=== PATIENT | female | born 2000 | race African-American/Black ===

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

== ENCOUNTER 2021-01-05 19:28 | Outpatient (CLI) | payer MEDICAID ==
[~2021-01-05] VITALS: Ht 177.8 cm; Wt 72.8 kg
[2021-01-05 19:45] VITALS: BP 118/90
[2021-01-05 20:01] LABS: BILIRUBIN,URINE NEGATIVE (NEGATIVE); CLARITY,URINE CLEAR; COLOR,URINE YELLOW; GLUCOSE, URINE (UA) NEGATIVE (NEGATIVE); KETONES,URINE NEGATIVE (NEGATIVE); LEUKOCYTE ESTERASE ,URINE 2+ (NEGATIVE); NITRITE,URINE NEGATIVE (NEGATIVE); PROTEIN,URINE NEGATIVE (NEGATIVE)
[2021-01-05 20:09] LABS: BACTERIA,URINE TRACE /HPF
[2021-01-05] MEDS ORDERED: PREN-142 PO (20:27)
[2021-01-05] MEDS ORDERED: FERR-84 PO (20:27)
[2021-01-05] MEDS ORDERED: CEPHALEXIN 250 MG (KEFLEX) CAP PO ONE (20:30)
[2021-01-05] MEDS ORDERED: CEPH500T PO (20:31)
--- NOTE | 2021-01-06 08:02 | Physician Query-Final Dx ---
Clinic Account Progress/Dx Physician Query: Please give diagnosis Please include # weeks gestation Date of Service Jan 05, 2021 at 19:28 MIRIAM THOMAS Jan 06, 2021 08:02
== END 2021-01-05 20:48 | disposition home or self-care (01) ==
LOC: WSo 19:28 → LDRP 19:28 → WSo 20:48
PROVIDERS: ATTEND Obstetrics & Gynecology
DX: O26.893 Other specified pregnancy related conditions, third trimester (principal); R25.2 Cramp and spasm; Z3A.37 37 weeks gestation of pregnancy
CPT/HCPCS: 81000; 87088

== ENCOUNTER 2021-01-09 22:43 | Inpatient (IN) | payer MEDICAID ==
[~2021-01-09] VITALS: Ht 170.2 cm; Wt 79.5 kg
[~2021-01-09 22:43] MED LIST changes: +CEPH500T PO; +FERR-84 PO; +PREN-142 PO
[2021-01-09 22:56] VITALS: BP 121/73
[2021-01-09 23:11] VITALS: BP 121/73
[2021-01-09] MEDS ORDERED: D5 LR IV SOLUTION 1,000 ML IV ONE (23:53)
[2021-01-10] VITALS (26 sets, daily range): BP systolic 112–144; BP diastolic 57–91
[2021-01-10] MEDS ORDERED: D5 LR IV SOLUTION 1,000 ML IV SCH
[2021-01-10] MEDS ORDERED: MINERAL OIL CONCENTRATE 99.9% 15 ML UDC TOP PRN
[2021-01-10 00:28] LABS: BASOPHILS % (AUTO) 0 % (0-10); EOSINOPHILS # (AUTO) 0.1 10^3/uL (0.0-0.3); EOSINOPHILS % (AUTO) 1 % (0-10); HEMATOCRIT 36 % (35-52); HEMOGLOBIN 12.1 g/dL (11.5-16.0); LYMPHOCYTES # (AUTO) 2.9 10^3/uL (1.0-4.0); LYMPHOCYTES % (AUTO) 25 % (12-44); MEAN CORPUSCULAR HEMOGLOBIN 31 pg (25-34); MEAN CORPUSCULAR HGB CONC 34 g/dL (32-36); MEAN CORPUSCULAR VOLUME 93 fL (80-99); MONOCYTES # (AUTO) 0.6 10^3/uL (0.0-1.0); MONOCYTES % (AUTO) 6 % (0-12); NEUTROPHILS % (AUTO) 68 % (42-75); PLATELET COUNT 214 10^3/uL (130-400); WHITE BLOOD COUNT 11.7 10^3/uL (4.3-11.0)
[2021-01-10] MEDS ORDERED: fentaNYL 2 mcg/ml BUPIVA 0.125 0 ML ONE (02:45)
[2021-01-10] MEDS ORDERED: fentaNYL INJ 100 MCG/2 ML AMP ONE (03:15)
--- NOTE | 2021-01-10 03:28 | History & Physical-OB ---
OB - Chief Complaint & HPI Date/Time Date of Admission: Date of Admission: Jan 09, 2021 at 23:30 Date seen by a Provider: Jan 10, 2021 Time Seen by a Provider: 03:25 Chief Complaint/History OB-Reason for Admission/Chief: Onset of Labor (Presented with complaint of contractions. ) Hx : 1 Hx Para: 0 Expected Date of Delivery: Dec 29, 2021 Gestational Age in Weeks: 37 Gestational Age in Days: 3 Admission Nurse Assessment Rev: Yes History of Labs O+/- GBS- Rub I Other unable to locate labs from [facility] except Rubella Will draw HbSag and VDRL Allergies and Home Medications Allergies Coded Allergies: latex (Verified Allergy, Unknown, 05/03/20) Patient Home Medication List Home Medication List Reviewed: Yes Cephalexin (Cephalexin) 500 Mg Tablet, 500 MG PO BID Prescribed by: CESAR CORONADO on 01/05/212030 Ferrous Sulfate (Iron) 325 Mg Tablet, 325 MG PO DAILY, (Reported) Entered as Reported by: CESAR CORONADO on 01/05/212026 Vit No.124/Iron/FA ( Vitamin Tablet) 1 Each Tablet, 1 EACH PO DAILY, (Reported) Entered as Reported by: CESAR CORONADO on 01/05/212026 Discontinued Medications Albuterol (Proair Hfa) 8.5 Gm Hfa.aer.ad, 2 PUFF IH PRN, (Reported) Discontinued Reason: No Longer Taking Entered as Reported by: FAUSTINO BURR on 01/29/13 1026 Azithromycin (Azithromycin) 250 Mg Tablet, 250 MG PO UD Discontinued Reason: No Longer Taking Prescribed by: GLORY YO on 05/13/20 1016 Fluticasone Propionate (Flonase Nasal [place]) 16 Gm Naspr, 16 GM NS BID, (Reported) Discontinued Reason: No Longer Taking Entered as Reported by: FAUSTINO BURR on 01/29/13 1026 Fluticasone/Salmeterol (Advair Hfa 115/21 Mcg Inhaler) 60 Puff/8 Gm Puff, 2 PUFF IH BID, (Reported) Discontinued Reason: No Longer Taking Entered as Reported by: FAUSTINO BURR on 01/29/13 1026 Montelukast Sodium (Singulair) 5 Mg Tab.chew, 5 MG PO DAILY, (Reported) Discontinued Reason: No Longer Taking Entered as Reported by: FAUSTINO BURR on 01/29/13 1026 Prednisone (Prednisone) 20 Mg Tab, 30 MG PO BID Discontinued Reason: No Longer Taking Prescribed by: TAMARA DELACRUZ on 06/12/162128 [Antibiotic] , (Reported) Discontinued Reason: No Longer Taking Entered as Reported by: FAUSTINO BURR on 01/29/13 1026 [Steroid] , (Reported) Discontinued Reason: No Longer Taking Entered as Reported by: FAUSTINO BURR on 01/29/13 1026 OB - History Hx of Present Care: Yes Ultrasounds: Normal mid trimester US Obstetrical Complications: None Medical Complications: None Information Induced Hypertension: No Maternal Gestational Diabetes: No Hemorrhage: No Obstetrical History Hx : 1 Hx Para: 0 Patient Past Medical History NC Social History/Family History Alcohol Use: Denies Use Recreational Drug Use: No 2nd Hand Smoke Exposure: Yes Immunizations Tetanus Booster (TDap): Less than 5yrs (12/04/2020) Rubella: immune RPR/VDRL: Unknown GBS Status: Negative HBsAG: Unknown OB - Admission Exam Physical Exam Vitals: Vital Signs 01/10/21 01/10/21 00:00 01:00 Temp 36.4 Pulse 71 Resp 18 B/P (MAP) 138/81 (100) Pulse Ox 98 O2 Delivery Room Air HEENT: NCAT Heart: Rhythm Normal Lungs: Clear Abdomen: Gravid Extremities: Edema Cervical Dilatation: 4cm Effacement: 75% Station: -2 Membranes: Intact Heart Rate: 140's Accelerations: Accelerations Present Decelerations: No Decelerations Short Term Variability: Present Nursing Home Variability: Average (6-25) Contractions on Admission: 6-10 Minutes Apart Labs Laboratory Tests Test 01/10/21 00:14 Range/Units White Blood Count 11.7 H 4.3-11.0 10^3/uL Red Blood Count 3.88 3.80-5.11 10^6/uL Hemoglobin 12.1 11.5-16.0 g/dL Hematocrit 36 35-52 % Mean Corpuscular Volume 93 80-99 fL Mean Corpuscular Hemoglobin 31 25-34 pg Mean Corpuscular Hemoglobin Concent 34 32-36 g/dL Red Cell Distribution Width 11.9 10.0-14.5 % Platelet Count 214 130-400 10^3/uL Mean Platelet Volume 10.0 9.0-12.2 fL Immature Granulocyte % (Auto) 1 % Neutrophils (%) (Auto) 68 42-75 % Lymphocytes (%) (Auto) 25 12-44 % Monocytes (%) (Auto) 6 0-12 % Eosinophils (%) (Auto) 1 0-10 % Basophils (%) (Auto) 0 0-10 % Neutrophils # (Auto) 8.0 H 1.8-7.8 10^3/uL Lymphocytes # (Auto) 2.9 1.0-4.0 10^3/uL Monocytes # (Auto) 0.6 0.0-1.0 10^3/uL Eosinophils # (Auto) 0.1 0.0-0.3 10^3/uL Basophils # (Auto) 0.0 0.0-0.1 10^3/uL Immature Granulocyte # (Auto) 0.1 0.0-0.1 10^3/uL OB - Assessment/Plan/Diagnosis Assessment Assessment: active labor Admission Dx Labor Admission Status: Inpatient Order (span 2 midnights) Reason for Inpatient Admission: Labor Plan Plan: Expectant Management DEANNE CHAMORRO DO Jan 10, 2021 03:28
[2021-01-10] MEDS ORDERED: OXYTOCIN PRE-MIX DRIP 500 ML IV ONE ×2 (03:37→04:45)
[2021-01-10] MEDS ORDERED: ONDANSETRON 4 MG/2 ML (SDV) Z0FRAN IV PRN (03:45)
[2021-01-10] MEDS ORDERED: diphenhydrAMINE 50 MG/ML INJ (BENADRYL) IV PRN (03:45)
[2021-01-10] MEDS ORDERED: NALOXONE 0.4 MG/ML 1 ML (NARCAN) VIAL IV PRN ×3 (03:45→04:45)
[2021-01-10] MEDS ORDERED: METOCLOPRAMIDE INJ 10 MG/2 ML (REGLAN) IV PRN (03:45)
[2021-01-10] MEDS: OXYTOCIN PRE-MIX DRIP 500 ML IV SCH ×2 (04:11→04:45)
--- NOTE | 2021-01-10 04:20 | OB Labor & Delivery Record ---
Vag Delivery Note Vag Delivery Note Date of Delivery: 01/10/21 Preoperative Diagnosis: Negrito Calvo is a 20 /Para 1 / 0, Gestational Age 37 2/7 week gestation labor Postoperative Diagnosis: Same; placental abruption Surgeon: DEANNE CHAMORRO Anesthesia: labor spinal Delivery Type: spontaneous vaginal Findings: [] Viable female infant, apgars & weight pending Lacerations: none Intact placenta with 3 vessel cord. No nuchal cord, body cord or shoulder dystocia Cytotec 800 mcg placed for hemorrhage prophylaxis Estimated Blood Loss: 750 ml Complications: None Condition: Stable Description of Procedure: The patient is a 21 year old female who presented in active labor. Att approximatley 2330 she was itzel regularly and was 4 cm dilated. She was admitted and informed consent was obtained. Her labor course was remarkable for 5 cm dilation at 0315 and epidural was requested. At 0345 she was now 8-9 cm dilated and had SROM so labor spinal was done. She was 9+ (rim) after plac ement of the spinal. She then had spontaneous nausea and emesis and delivered the head with an episode of emesis. She progressed to complete dilatation and began to push. She was then set up for delivery. The infant's head was delivered atraumatically in the JOEL position with one push. The shoulders and remainder of the 's body were then delivered without difficulty. Upon delivery, the head was held below the level of the perineum and the mouth and nares were bulb suctioned. The cord was doubly clamped and cut and the infant was handed off to the pediatric staff. An intact placenta with 3-vessel cord delivered via David and there was found to be minimal bleeding, however, there was 750 ml blood clots delivered with the placenta.~ Vigorous fundal massage was performed and the fundus was found to be firm. IV oxytocin was given. Examination of the vagina and perineum revealed no laceration. Following the delivery, sponge, instrument and needle counts were correct. Mom and baby were both in stable condition in the labor suite. Vitals - Labs Vital Signs - I&O Vital Signs Date Time Temp Pulse Resp B/P (MAP) Pulse Ox O2 Delivery O2 Flow Rate FiO2 01/10/21 01:00 71 18 138/81 (100) Room Air 01/10/21 00:00 36.4 85 18 121/73 (89) 98 Room Air 01/09/21 23:11 36.4 91 18 98 Room Air 01/09/21 22:56 36.4 91 18 98 Room Air Labs Laboratory Tests 01/10/21 00:14: White Blood Count 11.7H, Red Blood Count 3.88, Hemoglobin 12.1, Hematocrit 36, Mean Corpuscular Volume 93, Mean Corpuscular Hemoglobin 31, Mean Corpuscular Hemoglobin Concent 34, Red Cell Distribution Width 11.9, Platelet Count 214, Mean Platelet Volume 10.0, Immature Granulocyte % (Auto) 1, Neutrophils (%) (Auto) 68, Lymphocytes (%) (Auto) 25, Monocytes (%) (Auto) 6, Eosinophils (%) (Auto) 1, Basophils (%) (Auto) 0, Neutrophils # (Auto) 8.0H, Lymphocytes # (Auto) 2.9, Monocytes # (Auto) 0.6, Eosinophils # (Auto) 0.1, Basophils # (Auto) 0.0, Immature Granulocyte # (Auto) 0.1 DEANNE CHAMORRO DO Jan 10, 2021 04:20
[2021-01-10] MEDS ORDERED: BENZOCAINE/MENTHOL (DERMOPLAST) 56 ML CAN TP PRN (04:45)
[2021-01-10] MEDS ORDERED: TETANUS,DIPTH,PERTUSS P/F (BOOSTRIX) 0.5 ML VIAL IM ONE (04:45)
[2021-01-10] MEDS ORDERED: WITCH HAZEL(TUCKS) 40 EA JAR TOP PRN (04:45)
[2021-01-10] MEDS ORDERED: MEASLES,MUMPS,RUBELLA 1 EA INJ SQ ONE (04:45)
[2021-01-10] MEDS ORDERED: DIBUCAINE 1% OINTMENT 30 GM TUBE TOP PRN (04:45)
[2021-01-10] MEDS ORDERED: CATHETER FLUSH 10 ML SYR IV SCH ×2 (06:00)
[2021-01-10] MEDS ORDERED: PRENATAL VITAMIN 1 EA TAB PO SCH (07:00)
[2021-01-10] MEDS ORDERED: FERROUS SULF 325 MG (IRON) TAB PO SCH (09:00)
[2021-01-10] MEDS: DOCUSATE SODIUM 100 MG (COLACE) CAP PO SCH ×2 (09:39→23:54)
[2021-01-10] MEDS: IBUPROFEN 600 MG (MOTRIN) TAB PO SCH ×3 (09:39→23:54)
[2021-01-10] MEDS: ACETAMINOPHEN 500 MG TAB (TYLENOL) PO SCH ×2 (09:40→17:08)
--- NOTE | 2021-01-10 12:49 | Anesthesia-Regional Post-Op ---
Regional Patient Condition Mental Status: Alert, Oriented x3 Circulation: Same as Pre-Op Headache: Absent Sensation: Full Recovery Motor Block: Absent Post Op Complications Complications None Follow Up Care/Instructions Patient Instructions None needed. Anesthesia/Patient Condition Patient is doing well, no complaints, stable vital signs, no apparent adverse anesthesia problems. No complications reported per nursing. KELLEY NGUYEN CRNA Jan 10, 2021 12:49
[2021-01-10] MEDS ORDERED: ACET-93 PO (18:21)
[2021-01-10] MEDS ORDERED: IBUP-844 PO (18:21)
--- NOTE | 2021-01-10 18:22 | Discharge Inst-Women's Service ---
Discharge Inst-Women's Serv Depart Medication/Instructions New, Converted or Re-Newed RX: Transmitted to Pharmacy Final Diagnosis labor' Problems Reviewed?: Yes Consults/Follow Up Additional Follow Up: Yes (6 week for ppost exam. 2 weeks octavio Tamayo) Activity Activity: Activity as Tolerated Driving Instructions: You May Drive NO SMOKING: NO SMOKING Nothing Inside Vagina: No Douching, No [place], No Tampons Diet Discharge Diet: No Restrictions Symptoms to Report to : Bleeding Excessive, Pain Increased, Fever Over 101 Degrees F, Vaginal Bleeding Increase, Cramps in Feet or Legs, Vaginal Discharge Foul For Any Problems or Questions: Contact Your Physician DEANNE CHAMORRO DO Jan 10, 2021 18:22
[2021-01-11 06:05] VITALS: BP 118/80
[2021-01-11] MEDS: IBUPROFEN 600 MG (MOTRIN) TAB PO SCH (06:06)
[2021-01-11 06:35] LABS: BASOPHILS % (AUTO) 0 % (0-10); EOSINOPHILS # (AUTO) 0.2 10^3/uL (0.0-0.3); EOSINOPHILS % (AUTO) 1 % (0-10); HEMATOCRIT 30 % (35-52); HEMOGLOBIN 10.1 g/dL (11.5-16.0); LYMPHOCYTES # (AUTO) 3.2 10^3/uL (1.0-4.0); LYMPHOCYTES % (AUTO) 21 % (12-44); MEAN CORPUSCULAR HEMOGLOBIN 31 pg (25-34); MEAN CORPUSCULAR HGB CONC 34 g/dL (32-36); MEAN CORPUSCULAR VOLUME 92 fL (80-99); MEAN PLATELET VOLUME 9.6 fL (9.0-12.2); MONOCYTES # (AUTO) 0.7 10^3/uL (0.0-1.0); MONOCYTES % (AUTO) 5 % (0-12); NEUTROPHILS # (AUTO) 10.9 10^3/uL (1.8-7.8); NEUTROPHILS % (AUTO) 72 % (42-75); PLATELET COUNT 206 10^3/uL (130-400); WHITE BLOOD COUNT 15.1 10^3/uL (4.3-11.0)
--- NOTE | 2021-01-11 09:55 | Postpartum Progress Note ---
Note Note Day # 1 s/p , mild PPH Subjective: Patient is without complaints. Ambulating, voiding. Tolerating a regular diet without nausea or vomiting. Normal lochia. Pain is well controlled with oral pain medications. breast feeding. Objective: 01/10/21 01/11/21 23:53 06:05 Temp 37.0 36.8 Pulse 65 74 Resp 18 18 B/P (MAP) 124/84 (97) 118/80 (93) Pulse Ox 99 100 O2 Delivery Room Air Room Air Laboratory Tests Test 01/11/21 06:20 Range/Units White Blood Count 15.1 H 4.3-11.0 10^3/uL Red Blood Count 3.23 L 3.80-5.11 10^6/uL Hemoglobin 10.1 L 11.5-16.0 g/dL Hematocrit 30 L 35-52 % Mean Corpuscular Volume 92 80-99 fL Mean Corpuscular Hemoglobin 31 25-34 pg Mean Corpuscular Hemoglobin Concent 34 32-36 g/dL Red Cell Distribution Width 11.8 10.0-14.5 % Platelet Count 206 130-400 10^3/uL Mean Platelet Volume 9.6 9.0-12.2 fL Immature Granulocyte % (Auto) 1 % Neutrophils (%) (Auto) 72 42-75 % Lymphocytes (%) (Auto) 21 12-44 % Monocytes (%) (Auto) 5 0-12 % Eosinophils (%) (Auto) 1 0-10 % Basophils (%) (Auto) 0 0-10 % Neutrophils # (Auto) 10.9 H 1.8-7.8 10^3/uL Lymphocytes # (Auto) 3.2 1.0-4.0 10^3/uL Monocytes # (Auto) 0.7 0.0-1.0 10^3/uL Eosinophils # (Auto) 0.2 0.0-0.3 10^3/uL Basophils # (Auto) 0.0 0.0-0.1 10^3/uL Immature Granulocyte # (Auto) 0.1 0.0-0.1 10^3/uL Physical Exam: General - Alert and oriented, no apparent distress Abdomen - Soft, appropriately tender to palpation, non-distended, fundus firm at umbilicus Extremities - no edema, negative Adal's bilaterally Assessment: 1. post- day # 1, status post vaginal delivery. Recovering well, hemodynamically stable 2. Mild PPH - vitals and Hgb are stable Plan: Routine care. Encourage breast feeding. Encourage ambulation. Ferrous sulfate supplementation. Plan for discharge today Vitals - Labs Vital Signs - I&O Vital Signs Date Time Temp Pulse Resp B/P (MAP) Pulse Ox O2 Delivery O2 Flow Rate FiO2 01/11/21 06:05 36.8 74 18 118/80 (93) 100 Room Air 01/10/21 23:53 37.0 65 18 124/84 (97) 99 Room Air 01/10/21 19:30 36.8 98 18 127/83 (98) 100 Room Air 01/10/21 17:08 36.6 73 18 121/79 (93) 100 Room Air Labs Laboratory Tests 01/11/21 06:20: White Blood Count 15.1H, Red Blood Count 3.23L, Hemoglobin 10.1L, Hematocrit 30L , Mean Corpuscular Volume 92, Mean Corpuscular Hemoglobin 31, Mean Corpuscular Hemoglobin Concent 34, Red Cell Distribution Width 11.8, Platelet Count 206, Mean Platelet Volume 9.6, Immature Granulocyte % (Auto) 1, Neutrophils (%) (Auto) 72, Lymphocytes (%) (Auto) 21, Monocytes (%) (Auto) 5, Eosinophils (%) (Auto) 1, Basophils (%) (Auto) 0, Neutrophils # (Auto) 10.9H, Lymphocytes # (Auto) 3.2, Monocytes # (Auto) 0.7, Eosinophils # (Auto) 0.2, Basophils # (Auto) 0.0, Immature Granulocyte # (Auto) 0.1 DEANNE CHAMORRO DO Jan 11, 2021 09:55
== END 2021-01-11 11:15 | disposition home or self-care (01) | DRG 806 ==
LOC: WSo 22:43 → LDRP 22:43 → WSo 23:30 → LDRP 01-10 06:30
PROVIDERS: ADMIT Obstetrics & Gynecology; ATTEND Obstetrics & Gynecology
PROC: 10E0XZZ Delivery of Products of Conception, External Approach (ICD-10-PCS; principal; 2021-01-10)
DX: O45.93 Premature separation of placenta, unspecified, third trimester (principal); O72.1 Other immediate postpartum hemorrhage; Z37.0 Single live birth; Z3A.37 37 weeks gestation of pregnancy
CPT/HCPCS: 36415; 85025; 86780; 86850; 86900; 86901; 87340; 99212